=== PATIENT | male | born 1990 | race Caucasian/White ===

== ENCOUNTER 2020-05-08 11:49 | Emergency (ER) | payer OTHER ==
[~2020-05-08] VITALS: Ht 177.8 cm; Wt 81.7 kg
[2020-05-08 12:43] LABS: BASOPHILS ABSOLUTE AUTO 0.14 K/mm3 (0.00-0.23); BASOPHILS PERCENT AUTO 0 % (0-2); EOSINOPHILS ABSOLUTE AUTO 0.34 K/mm3 (0.00-0.68); EOSINOPHILS PERCENT AUTO 1 % (0-6); Hematocrit 44.4 % (37.0-53.0); Hemoglobin 14.6 g/dL (13.5-17.5); IMMATURE GRAN ABSOLUTE AUTO 0.41 K/mm3 (0.00-0.10); IMMATURE GRAN PERCENT AUTO 1 % (0-1); LYMPHOCYTES ABSOLUTE AUTO 3.39 K/mm3 (0.84-5.20); LYMPHOCYTES PERCENT AUTO 9 % (21-46); MONOCYTES ABSOLUTE AUTO 1.84 K/mm3 (0.16-1.47); MONOCYTES PERCENT AUTO 5 % (4-13); Mean Corpuscular HGB 26.5 pg (26.0-34.0); Mean Corpuscular HGB Conc 32.9 g/dL (31.5-36.5); Mean Corpuscular Volume 81 fL (80-100); Mean Platelet Volume 10.1 fL (9.1-12.4); NEUTROPHILS ABSOLUTE AUTO 30.11 K/mm3 (1.96-9.15); NEUTROPHILS PERCENT AUTO 83 % (41-73); Platelet Count 318 K/mm3 (150-400); RDW Coefficient Variation 14.9 % (11.7-14.2); RDW Standard Deviation 43.5 fL (35.1-46.3); Red Blood Cell Count 5.51 M/mm3 (4.30-5.90); White Blood Cell Count 36.23 K/mm3 (4.00-11.30)
[2020-05-08 12:57] LABS: International Normalized Ratio 0.97; Prothrombin Time Results 10.4 Sec (9.7-11.5)
[2020-05-08 13:07] LABS: Alanine Aminotransfer (ALT/SGP 39 U/L (12-78); Albumin/Globulin Ratio 1.1 (0.8-1.8); Alk Phos 63 U/L (50-136); Anion Gap 11 mmol/L (6-16); Aspartate Aminotrans (AST/SGOT 30 U/L (12-37); Bilirubin, Total 0.5 mg/dL (0.1-1.0); Blood Urea Nitrogen 21 mg/dL (8-24); Bun/Creatinine Ratio 31.2 (12.0-20.0); CO2, Blood 23 mmol/L (21-32); Calcium, Blood 8.8 mg/dL (8.5-10.1); Chloride, Blood 105 mmol/L (98-108); Creatinine, Blood 0.67 mg/dL (0.60-1.20); Ethanol (Alcohol), Blood, Med <3 mg/dL; Globulin, Blood 3.7 g/dL (2.2-4.0); Glomerular Filtration Rate >60 (60-); Glucose, Blood 117 mg/dL (70-99); Potassium, Blood 3.6 mmol/L (3.5-5.5); Sodium, Blood 139 mmol/L (136-145); Total Protein, Blood 7.7 g/dL (6.4-8.2)
--- NOTE | 2020-05-08 15:07 | NUR ---
History, Chart, Medications and Allergies reviewed before start of procedure.Lungs clear T/O to Auscultation. Patient confirms NPO status and agrees with scheduled surgery. REMOVED NECK STABILIZATION COLLAR AFTER CLEARED FOR TRAUMA BY ED MD. PLACED CLOTHES IN GREEN BAG AND PLACED UNDER THE BED. INCLUDED PHONE AND WALLET. PANTS AND SHIRT WERE CUT OFF PT.M PT IS LYING ON ER GURNEY WITH RT LEG LYING ON PILLOW. ABLE TO MAKE NEEDS KNOWN, PREPARING PT TO HAVE A CLOSED REDUCTION RO HIP PROCEDURE WITH DR FLEMING.
[2020-05-08 15:08] LABS: Influenza A, PCR Negative (NEGATIVE); Influenza B, PCR Negative (NEGATIVE); Resp Syncytial Virus, PCR Negative (NEGATIVE); SARS-Cov-2 (COVID-19) PCR, MMC Negative (NEGATIVE)
--- NOTE | 2020-05-08 16:10 | NUR ---
PT CIRCULATION TO RIGHT LOWER EXTREMITY INTACT, WARM TO TOUCH, PEDAL PULSE 2+, CAP REFILL LESS THAN 3 SEC. PT RESTING COMFORTABLY T/O RECOVERY. REPORT TO SHANNEN THOMASON RN. SPOKE TO MOM PER PT REQUEST. WILL TAKE PT BACK TO ER 13 VIA [facility]. NO MEDS GIVEN IN RECOVERY. ELGINS REMAINED UNDER THE BED.
== END 2020-05-08 20:50 | disposition home or self-care (01) ==
LOC: ER 11:49 → SURS 11:50 → ER 11:50 → EDBEDREQ 19:32 → EDBEDREQTM 19:32 → SURS 19:58 → UNDODEPER 20:25 → ER 20:50
PROVIDERS: Orthopaedic Surgery; Physician Assistant
DX: S73.004A Unspecified dislocation of right hip, initial encounter (principal); S01.01XA Laceration without foreign body of scalp, initial encounter; Z20.822 Contact with and (suspected) exposure to COVID-19; V48.6XXA Car passenger injured in noncollision transport accident in traffic accident, initial encounter; Y92.410 Unspecified street and highway as the place of occurrence of the external cause
CPT/HCPCS: 0241U; 70450; 71045; 71260; 72125; 72170; 73501; 73552; 73620; 74177; 80053; 85025; 85610; 86850; 86900; 86901; 96361; 96374-59; 96375-59; 99152; 99285-25; G0480; J1170; J2250; J2405; J2704; J3010; J7030; L0160; Q9967